=== PATIENT | male | born 1995 | race African-American/Black ===

== ENCOUNTER 2021-09-17 13:28 | Emergency (ER) | payer OTHER ==
[2021-09-17 14:33] LABS: BUN/CREAT RATIO (CALC) 9.9 RATIO; CREATININE 0.81 mg/dL (0.67-1.17); HGB 12.7 g/dl (13.2-18.0); LYMPHOCYTE 17.2 % (15-48); MCHC 32.6 g/dL (32.0-36.0); MONOCYTE 6.5 % (0-12); MPV 10.6 fL (6.0-9.5); NRBC 0; PLT 231 K/uL (150-400); POTASSIUM 4.2 mmol/L (3.5-5.1); RBC 4.24 M/uL (4.70-6.00); RDW 12.1 % (11.5-14.0); WBC 6.7 K/uL (4.0-10.5)
== END 2021-09-17 16:26 | disposition home or self-care (01) ==
LOC: FER 13:28
PROVIDERS: Nurse Practitioner Family
DX: G40.909 Epilepsy, unspecified, not intractable, without status epilepticus (principal); Z79.899 Other long term (current) drug therapy
CPT/HCPCS: 36415; 80048; 85025; J1953; J7030